=== PATIENT | male | born 1950 | race Caucasian/White ===

== ENCOUNTER 2022-01-22 20:19 | Emergency (ER) | payer OTHER ==
[~2022-01-22] VITALS: Ht 170.2 cm; Wt 70.8 kg
[2022-01-22] MEDS ORDERED: METOPROLOL SUCC25 MG (20:24)
== END 2022-01-22 22:12 | disposition home or self-care (01) ==
LOC: ER 20:19
DX: R07.89 Other chest pain (principal); I10 Essential (primary) hypertension